=== PATIENT | female | born 1965 | race Caucasian/White ===

== ENCOUNTER 2023-01-17 06:59 | Emergency (ER) | payer MEDICAID, OTHER ==
[~2023-01-17] VITALS: Ht 154.9 cm; Wt 97.0 kg
[~2023-01-17 06:59] MED LIST: GLIP10TA10 PO; SITA1TAB8 PO; SULF1TAB48 PO; TRAM50TA3 PO
[2023-01-17 07:13] VITALS: BP 142/72; PULSE 88; RESP 18; TEMP 97.7; O2SAT 98
[2023-01-17] MEDS ORDERED: ACETAMINOPHEN 325MG TABLET PO ONE (07:30)
[2023-01-17] MEDS ORDERED: IBUPROFEN 400MG TABLET PO ONE (07:30)
[2023-01-17] MEDS ORDERED: CEPH500C2 PO (07:39)
[2023-01-17] MEDS ORDERED: SULF1TAB48 PO (07:39)
[2023-01-17 07:58] LABS: BASOPHILS % 0.9 % (0.0-2.0); EOSINOPHILS % 1.4 % (0.0-5.0); HEMATOCRIT. 35.5 % (36.0-48.0); HEMOGLOBIN. 12.2 g/dL (12.0-16.0); LYMPHOCYTES % 25.2 % (20.0-50.0); MEAN CORPUSCULAR HEMOGLOBIN 30.7 pg (28.0-32.0); MEAN CORPUSCULAR HGB CONC 34.2 g/dL (31.0-37.0); MEAN CORPUSCULAR VOLUME 89.7 fL (81.0-99.0); MONOCYTES % 5.9 % (2.0-8.0); NEUTROPHILS % 66.6 % (40.0-76.0); PLATELET 315 x1000/uL (130-400); RED BLOOD CELL COUNT 3.96 mill/uL (4.2-5.4); RED CELL DISTRIBUTION WIDTH 13.8 % (11.6-14.6); WHITE BLOOD COUNT 7.8 x1000/uL (4.5-11.0)
[2023-01-17] MEDS ORDERED: PROPOFOL 200MG/20ML VIAL IV PRN (08:15)
[2023-01-17] MEDS ORDERED: KETAMINE HCL 50 MG/ML 10ML IV ONE (08:15)
[2023-01-17] MEDS ORDERED: ONDANSETRON HCL 4MG/2ML INJ IV ONE (08:15)
[2023-01-17 08:20] LABS: ALANINE AMINOTRANSFERASE 30 IU/L (10-49); ALBUMIN 3.8 g/dL (3.2-4.8); ASPARTATE AMINOTRANSFERASE 31 IU/L (<34); BILIRUBIN TOTAL 0.5 mg/dL (0.1-1.0); CALCIUM 9.4 mg/dL (8.7-10.4); CARBON DIOXIDE 25 mEq/L (21-32); CHLORIDE 103 mEq/L (98-107); CREATININE 0.6 mg/dL (0.6-1.0); GLUCOSE 215 mg/dL (70-105); POTASSIUM 4.2 mEq/L (3.5-5.1); PROTEIN TOTAL 6.9 g/dL (6.0-8.3); SODIUM 136 mEq/L (136-145); THYROID STIMULATING HORMONE 2.35 uIU/mL (0.55-4.78); UREA NITROGEN BLOOD 11 mg/dL (9-23)
== END 2023-01-17 08:21 | disposition home or self-care (01) ==
LOC: ER 06:59
DX: L03.221 Cellulitis of neck (principal)
CPT/HCPCS: 36415; 80053; 84443; 85025; 99283

== ENCOUNTER 2023-01-23 06:15 | Emergency (ER) | payer MEDICAID ==
[~2023-01-23] VITALS: Ht 154.9 cm; Wt 103.0 kg
[~2023-01-23 06:15] MED LIST changes: +CEPH500C2 PO
[2023-01-23 06:19] VITALS: O2SAT 98
[2023-01-23] MEDS ORDERED: IBUP-2028 MT (06:29)
[2023-01-23] MEDS ORDERED: DIPH25CA83 MT (06:29)
[2023-01-23 07:14] VITALS: BP 134/77; PULSE 68; RESP 18; TEMP 98.4
== END 2023-01-23 07:16 | disposition home or self-care (01) ==
LOC: ER 06:15
DX: S10.96XA Insect bite of unspecified part of neck, initial encounter (principal); E11.9 Type 2 diabetes mellitus without complications; E78.00 Pure hypercholesterolemia, unspecified; I10 Essential (primary) hypertension; Z90.49 Acquired absence of other specified parts of digestive tract; Z90.710 Acquired absence of both cervix and uterus; Z98.890 Other specified postprocedural states; W57.XXXA Bitten or stung by nonvenomous insect and other nonvenomous arthropods, initial encounter; Y93.89 Activity, other specified; Y92.89 Other specified places as the place of occurrence of the external cause; Y99.8 Other external cause status
CPT/HCPCS: 99283

== ENCOUNTER → 2023-03-13 | Emergency (ER) | payer MEDICAID ==
[~2023-03-13] VITALS: Ht 154.9 cm; Wt 88.4 kg
[~2023-03-13] MED LIST changes: +DIPH25CA83 MT; +IBUP-2028 MT
[2023-03-13 05:20] VITALS: BP 152/62; PULSE 96; RESP 14; TEMP 98; O2SAT 99
[2023-03-13 06:02] LABS: CLARITY URINE CLEAR (CLEAR); COLOR URINE YELLOW (YELLOW); GLUCOSE URINE 3+ (NEGATIVE); KETONES URINE 1+ (NEGATIVE); LEUKOCYTE ESTERASE URINE NEGATIVE (NEGATIVE); NITRITE URINE NEGATIVE (NEGATIVE); OCCULT BLOOD URINE 2+ (NEGATIVE); PH URINE 6.5 (4.5-8.0); PROTEIN URINE 3+ (NEGATIVE); SPECIFIC GRAVITY URINE 1.032 (1.005-1.030); UROBILINOGEN URINE 0.2 E.U./dL (0.2-1.0)
[2023-03-13 06:44] LABS: SQUAMOUS EPITHELIAL CELL URINE FEW /lpf (RARE/1+)
[2023-03-13 06:46] LABS: WBC URINE 0-2 /hpf (0-2)
[2023-03-13 06:48] LABS: BACTERIA URINE NONE SEEN
== END ==
LOC: ER 05:02
DX: M25.559 Pain in unspecified hip (principal); Z53.21 Procedure and treatment not carried out due to patient leaving prior to being seen by health care provider
CPT/HCPCS: 81003; 99281

== ENCOUNTER 2023-03-18 00:47 | Emergency (ER) | payer MEDICAID ==
[~2023-03-18] VITALS: Ht 154.9 cm; Wt 88.1 kg
[2023-03-18 01:23] VITALS: O2SAT 99
[2023-03-18] MEDS ORDERED: HYDROCODONE/ACETAMINOPHEN 5/325MG TABLET PO ONE (03:00)
[2023-03-18] MEDS ORDERED: IBUP-2029 MT (04:09)
[2023-03-18 04:55] VITALS: BP 122/84; PULSE 89; RESP 16; TEMP 97.9
== END 2023-03-18 04:50 | disposition home or self-care (01) ==
LOC: ER 00:47
DX: S80.02XA Contusion of left knee, initial encounter (principal); M71.22 Synovial cyst of popliteal space [Baker], left knee; E78.00 Pure hypercholesterolemia, unspecified; I10 Essential (primary) hypertension; E11.9 Type 2 diabetes mellitus without complications; Z90.49 Acquired absence of other specified parts of digestive tract; Z98.890 Other specified postprocedural states; W18.30XA Fall on same level, unspecified, initial encounter; Y93.89 Activity, other specified; Y92.89 Other specified places as the place of occurrence of the external cause; Y99.8 Other external cause status
CPT/HCPCS: 73562; 93970; 99284

== ENCOUNTER 2023-03-19 07:33 | Emergency (ER) | payer MEDICAID ==
[~2023-03-19] VITALS: Ht 160 cm; Wt 90.0 kg
[~2023-03-19 07:33] MED LIST changes: +IBUP-2029 MT
[2023-03-19 07:51] VITALS: O2SAT 99
[2023-03-19 10:21] VITALS: BP 160/81; PULSE 87; RESP 20; TEMP 98.3
== END 2023-03-19 10:22 | disposition home or self-care (01) ==
LOC: ER 07:33
DX: R60.9 Edema, unspecified (principal); I10 Essential (primary) hypertension; E78.00 Pure hypercholesterolemia, unspecified; E11.9 Type 2 diabetes mellitus without complications; Z98.890 Other specified postprocedural states; Z90.49 Acquired absence of other specified parts of digestive tract
CPT/HCPCS: 99281

== ENCOUNTER 2023-04-24 21:40 | Emergency (ER) | payer MEDICAID ==
[~2023-04-24] VITALS: Ht 152.4 cm; Wt 94.0 kg
[2023-04-24 21:57] VITALS: O2SAT 99
[2023-04-24] MEDS ORDERED: KETOROLAC 15MG/ML VIAL IM ONE (22:15)
[2023-04-24] MEDS: KETOROLAC 15MG/ML VIAL IM NR (23:50)
[2023-04-25 00:28] VITALS: BP 120/80; PULSE 85; RESP 18; TEMP 98.4
== END 2023-04-25 00:28 | disposition home or self-care (01) ==
LOC: ER 21:40
DX: S09.90XA Unspecified injury of head, initial encounter (principal); E11.9 Type 2 diabetes mellitus without complications; E78.00 Pure hypercholesterolemia, unspecified; I10 Essential (primary) hypertension; Z98.890 Other specified postprocedural states; Z90.710 Acquired absence of both cervix and uterus; Z79.899 Other long term (current) drug therapy; Y08.89XA Assault by other specified means, initial encounter; Y93.89 Activity, other specified; Y92.89 Other specified places as the place of occurrence of the external cause; Y99.8 Other external cause status
CPT/HCPCS: 99285; 70450; 96372; J1885

== ENCOUNTER 2023-04-27 01:29 | Emergency (ER) | payer MEDICAID ==
[~2023-04-27] VITALS: Ht 167.6 cm; Wt 85.3 kg
[2023-04-27 01:45] VITALS: BP 143/58; PULSE 90; RESP 16; TEMP 98.6; O2SAT 99
== END 2023-04-27 11:50 | disposition left against medical advice (07) ==
LOC: ER 03:50
DX: M79.672 Pain in left foot (principal); M79.671 Pain in right foot; Z53.21 Procedure and treatment not carried out due to patient leaving prior to being seen by health care provider
CPT/HCPCS: 99281

== ENCOUNTER 2023-04-27 18:21 | Emergency (ER) | payer MEDICAID ==
[~2023-04-27] VITALS: Ht 154.9 cm; Wt 90.0 kg
[2023-04-27 18:43] VITALS: BP 142/92; PULSE 86; RESP 18; TEMP 98.2; O2SAT 99
== END 2023-04-27 20:42 | disposition left against medical advice (07) ==
LOC: ER 18:21
DX: M79.89 Other specified soft tissue disorders (principal); Z53.21 Procedure and treatment not carried out due to patient leaving prior to being seen by health care provider
CPT/HCPCS: 99281

== ENCOUNTER 2023-05-06 08:29 | Emergency (ER) | payer MEDICAID ==
[~2023-05-06] VITALS: Ht 165.1 cm; Wt 90.0 kg
[2023-05-06 08:31] VITALS: BP 150/94; PULSE 80; RESP 16; TEMP 98.5; O2SAT 99
[2023-05-06 09:13] LABS: BASOPHILS % 0.5 % (0.0-2.0); EOSINOPHILS % 0.6 % (0.0-5.0); HEMATOCRIT. 33.8 % (36.0-48.0); HEMOGLOBIN. 11.7 g/dL (12.0-16.0); LYMPHOCYTES % 13.1 % (20.0-50.0); MEAN CORPUSCULAR HGB CONC 34.5 g/dL (31.0-37.0); MEAN CORPUSCULAR VOLUME 89.8 fL (81.0-99.0); MEAN PLATELET VOLUME 7.2 fl (7.4-10.4); MONOCYTES % 5.2 % (2.0-8.0); NEUTROPHILS % 80.6 % (40.0-76.0); PLATELET 260 x1000/uL (130-400); RED BLOOD CELL COUNT 3.77 mill/uL (4.2-5.4); RED CELL DISTRIBUTION WIDTH 13.9 % (11.6-14.6); WHITE BLOOD COUNT 8.9 x1000/uL (4.5-11.0)
[2023-05-06] MEDS: SODIUM CHLORIDE 0.9% 1,000 ML IV ONE (09:57)
[2023-05-06] MEDS: LACTATED RINGERS 1,800 ML IV ONE (09:57)
[2023-05-06 10:06] LABS: ALANINE AMINOTRANSFERASE 33 IU/L (10-49); ALBUMIN 3.5 g/dL (3.2-4.8); ASPARTATE AMINOTRANSFERASE 26 IU/L (<34); BILIRUBIN TOTAL 0.5 mg/dL (0.1-1.0); CALCIUM 8.7 mg/dL (8.7-10.4); CARBON DIOXIDE 27 mEq/L (21-32); CHLORIDE 99 mEq/L (98-107); CREATININE 0.7 mg/dL (0.6-1.0); POTASSIUM 3.9 mEq/L (3.5-5.1); SODIUM 132 mEq/L (136-145); TROPONIN I HIGH SENSITIVITY 11 ng/L (3.0-34); UREA NITROGEN BLOOD 18 mg/dL (9-23)
[2023-05-06 10:13] LABS: GLUCOSE 477 mg/dL (70-105)
[2023-05-06 16:09] LABS: BETA HYDROXYBUTYRATE 0.7 mMol/L (0.0-0.3)
== END 2023-05-06 12:02 | disposition left against medical advice (07) ==
LOC: ER 08:43 → CANBEDREQ 05-07 00:25
DX: E11.65 Type 2 diabetes mellitus with hyperglycemia (principal); R53.1 Weakness; E78.00 Pure hypercholesterolemia, unspecified; I10 Essential (primary) hypertension; Z98.890 Other specified postprocedural states; Z90.710 Acquired absence of both cervix and uterus; Z90.49 Acquired absence of other specified parts of digestive tract; Z79.899 Other long term (current) drug therapy
CPT/HCPCS: 99285; 96360; 71045; 80053; 82010; 83690; 83930; 85025; 84484; 36415; 93005; J7120; J7030

== ENCOUNTER 2023-05-09 09:33 | Emergency (ER) | payer MEDICAID ==
[~2023-05-09] VITALS: Ht 154.9 cm; Wt 59.0 kg
[2023-05-09 09:38] VITALS: BP 120/52; PULSE 90; RESP 16; TEMP 97.9; O2SAT 99
== END 2023-05-09 10:00 | disposition left against medical advice (07) ==
LOC: ER 09:33
DX: M79.672 Pain in left foot (principal); M79.671 Pain in right foot; Z53.21 Procedure and treatment not carried out due to patient leaving prior to being seen by health care provider
CPT/HCPCS: 99281

== ENCOUNTER 2023-05-10 21:42 | Emergency (ER) | payer MEDICAID ==
[2023-05-10 21:46] VITALS: PULSE 105
== END 2023-05-10 21:50 | disposition left against medical advice (07) ==
LOC: ER 21:42
DX: M79.89 Other specified soft tissue disorders (principal); Z53.21 Procedure and treatment not carried out due to patient leaving prior to being seen by health care provider
CPT/HCPCS: 99281

== ENCOUNTER 2023-05-11 21:17 | Emergency (ER) | payer MEDICAID ==
[~2023-05-11] VITALS: Ht 165.1 cm; Wt 90.0 kg
[2023-05-11 21:19] VITALS: BP 156/87; PULSE 96; RESP 12; TEMP 98.8; O2SAT 98
== END 2023-05-12 02:22 | disposition left against medical advice (07) ==
LOC: ER 21:17
DX: R10.9 Unspecified abdominal pain (principal); Z53.21 Procedure and treatment not carried out due to patient leaving prior to being seen by health care provider
CPT/HCPCS: 93005; 99281

== ENCOUNTER 2023-05-12 20:57 | Emergency (ER) | payer MEDICAID ==
[~2023-05-12] VITALS: Ht 152.4 cm; Wt 81.7 kg
[2023-05-12] MEDS: HALOPERIDOL LACTATE 5MG/ML VIAL IM ONE (23:23)
[2023-05-12 23:54] LABS: BASOPHILS % 0.8 % (0.0-2.0); EOSINOPHILS % 1.5 % (0.0-5.0); HEMATOCRIT. 30.5 % (36.0-48.0); HEMOGLOBIN. 10.5 g/dL (12.0-16.0); LYMPHOCYTES % 33.2 % (20.0-50.0); MEAN CORPUSCULAR HEMOGLOBIN 31.5 pg (28.0-32.0); MEAN CORPUSCULAR HGB CONC 34.5 g/dL (31.0-37.0); MEAN CORPUSCULAR VOLUME 91.3 fL (81.0-99.0); MEAN PLATELET VOLUME 7.4 fl (7.4-10.4); NEUTROPHILS % 54.5 % (40.0-76.0); PLATELET 268 x1000/uL (130-400); RED BLOOD CELL COUNT 3.34 mill/uL (4.2-5.4); RED CELL DISTRIBUTION WIDTH 13.8 % (11.6-14.6); WHITE BLOOD COUNT 8.1 x1000/uL (4.5-11.0)
[2023-05-13 00:01] LABS: PROTHROMBIN TIME 10.7 sec (9.6-11.0)
[2023-05-13 00:12] LABS: LACTIC ACID 2.3 mmol/L (0.4-2.0)
[2023-05-13] MEDS: CEFTRIAXONE 1GM/50ML 50 ML IV ONE (00:12)
[2023-05-13] MEDS: SODIUM CHLORIDE 0.9% 1000ML BAG (SEPSIS BOLUS) IV ONE (00:12)
[2023-05-13 00:13] LABS: ACETAMINOPHEN < 2 ug/mL (10-30); ALANINE AMINOTRANSFERASE 73 IU/L (10-49); ALBUMIN 3.3 g/dL (3.2-4.8); ASPARTATE AMINOTRANSFERASE 57 IU/L (<34); BILIRUBIN TOTAL 0.4 mg/dL (0.1-1.0); CALCIUM 8.2 mg/dL (8.7-10.4); CARBON DIOXIDE 27 mEq/L (21-32); CHLORIDE 96 mEq/L (98-107); CREATININE 0.8 mg/dL (0.6-1.0); POTASSIUM 4.2 mEq/L (3.5-5.1); PROTEIN TOTAL 6.4 g/dL (6.0-8.3); SODIUM 128 mEq/L (136-145); TROPONIN I HIGH SENSITIVITY 10 ng/L (3.0-34); UREA NITROGEN BLOOD 23 mg/dL (9-23)
[2023-05-13 00:14] LABS: ETHANOL BLOOD < 10 mg/dL (<10)
[2023-05-13 00:17] LABS: GLUCOSE 655 mg/dL (70-105)
[2023-05-13 00:25] LABS: CLARITY URINE CLEAR (CLEAR); COLOR URINE YELLOW (YELLOW); GLUCOSE URINE 3+ (NEGATIVE); KETONES URINE NEGATIVE (NEGATIVE); LEUKOCYTE ESTERASE URINE NEGATIVE (NEGATIVE); NITRITE URINE NEGATIVE (NEGATIVE); OCCULT BLOOD URINE NEGATIVE (NEGATIVE); PH URINE 5.5 (4.5-8.0); PROTEIN URINE 1+ (NEGATIVE); SPECIFIC GRAVITY URINE 1.033 (1.005-1.030); UROBILINOGEN URINE 0.2 E.U./dL (0.2-1.0)
[2023-05-13 00:32] LABS: BETA HYDROXYBUTYRATE 0.1 mMol/L (0.0-0.3)
[2023-05-13 00:37] LABS: HCG SCREEN NEGATIVE
[2023-05-13 00:48] LABS: *AMPHETAMINES SCREEN URINE NEGATIVE (NEGATIVE); *BARBITURATES SCREEN URINE NEGATIVE (NEGATIVE); *BENZODIAZEPINES SCREEN URINE NEGATIVE (NEGATIVE); *COCAINE SCREEN URINE NEGATIVE (NEGATIVE); CANNABINOID URINE SCREEN NEGATIVE (NEGATIVE); ECSTASY MDMA SCREEN URINE NEGATIVE (NEGATIVE); METHADONE URINE SCREEN Neg (NEGATIVE); OPIATES URINE SCREEN NEGATIVE (NEGATIVE); PHENCYCLIDINE URINE SCREEN NEGATIVE (NEGATIVE)
[2023-05-13] MEDS ORDERED: INSULIN LISPRO 100 UNITS/ML SUBCUT NR (01:30)
[2023-05-13 02:36] LABS: SQUAMOUS EPITHELIAL CELL URINE FEW /lpf (RARE/1+)
[2023-05-13 02:38] LABS: RBC URINE 0-2 /hpf (0-2); WBC URINE 0-2 /hpf (0-2)
[2023-05-13 02:39] LABS: BACTERIA URINE NONE SEEN
[2023-05-13] MEDS: INSULIN LISPRO 100 UNITS/ML SUBCUT NR (03:09)
[2023-05-13 04:56] LABS: TROPONIN I HIGH SENSITIVITY 11 ng/L (3.0-34)
[2023-05-13] MEDS: INSULIN REGULAR (HUMULIN R) 300UNITS/3ML VIAL SUBCUT ONE (09:30)
[2023-05-13] MEDS: METFORMIN HCL 500MG TABLET PO SCH (19:45)
[2023-05-13] MEDS: OLANZAPINE 5MG TABLET ODT PO SCH (19:45)
[2023-05-13] MEDS: OLANZAPINE 10 MG/VIAL IM ONE (21:15)
[2023-05-13] MEDS: HALOPERIDOL LACTATE 5MG/ML VIAL IM ONE (23:20)
[2023-05-14 06:19] LABS: CALCIUM 8.7 mg/dL (8.7-10.4); CARBON DIOXIDE 29 mEq/L (21-32); CHLORIDE 107 mEq/L (98-107); CREATININE 0.6 mg/dL (0.6-1.0); GLUCOSE 265 mg/dL (70-105); POTASSIUM 4.3 mEq/L (3.5-5.1); SODIUM 141 mEq/L (136-145); UREA NITROGEN BLOOD 16 mg/dL (9-23)
[2023-05-15] MEDS: HALOPERIDOL LACTATE 5MG/ML VIAL IM ONE (00:30)
[2023-05-15 04:50] VITALS: O2SAT 98
[2023-05-15] MEDS: MIDAZOLAM HCL 2 MG/2 ML VIAL IM ONE (04:50)
[2023-05-16] MEDS ORDERED: DEXTROSE 50% WATER 50ML SYRINGE IV PRN (15:30)
[2023-05-16] MEDS: BLOOD SUGAR DIAGNOSTIC STRIP TEST SCH (17:57)
[2023-05-16] MEDS: INSULIN LISPRO 100 UNITS/ML SUBCUT SCH (18:41)
[2023-05-17] MEDS: ACETAMINOPHEN 325MG TABLET PO NR (06:18)
[2023-05-17] MEDS ORDERED: INSULIN REGULAR (HUMULIN R) 300UNITS/3ML VIAL SUBCUT ONE (08:45)
[2023-05-17 13:30] VITALS: BP 112/65; PULSE 90; RESP 16; TEMP 98
== END 2023-05-17 13:30 | disposition home or self-care (01) ==
LOC: ER 20:57
DX: R41.82 Altered mental status, unspecified (principal); I10 Essential (primary) hypertension; E11.9 Type 2 diabetes mellitus without complications; E78.00 Pure hypercholesterolemia, unspecified; Z98.890 Other specified postprocedural states; Z90.49 Acquired absence of other specified parts of digestive tract; Z20.822 Contact with and (suspected) exposure to COVID-19
CPT/HCPCS: 80053; 80305; 80048; 81003; 81025; 80307; 82010; 80329; 80320; 82962 ×2; 84703; 83605; 83930; 85025; 85610; 87040; 87086; 84484; 87077; 36415; 84145; 71045; 93005; 96372 ×4; 99285; 87426; 96365; J0696; J1630 ×3; J7030; Z7610 ×2; J3490; J1815 ×2; J2250; G0480

== ENCOUNTER 2023-05-18 01:54 | Emergency (ER) | payer MEDICAID | END 2023-05-18 03:09 | disposition left against medical advice (07) | LOC: ER 01:54 | DX: M79.669 Pain in unspecified lower leg (principal); Z53.21 Procedure and treatment not carried out due to patient leaving prior to being seen by health care provider ==

== ENCOUNTER 2023-05-18 16:42 | Emergency (ER) | payer MEDICAID ==
[~2023-05-18] VITALS: Ht 157.5 cm; Wt 72.0 kg
[2023-05-18 16:46] VITALS: BP 105/46; PULSE 113; RESP 20; TEMP 98.1; O2SAT 100
== END 2023-05-18 17:13 | disposition left against medical advice (07) ==
LOC: ER 16:42
DX: M79.671 Pain in right foot (principal); E11.9 Type 2 diabetes mellitus without complications; E78.00 Pure hypercholesterolemia, unspecified; I10 Essential (primary) hypertension; Z90.710 Acquired absence of both cervix and uterus; Z98.890 Other specified postprocedural states
CPT/HCPCS: 73630; 99283

== ENCOUNTER 2023-05-20 01:04 | Emergency (ER) | payer MEDICAID ==
[2023-05-20 01:22] VITALS: PULSE 106; RESP 16
== END 2023-05-20 04:00 | disposition left against medical advice (07) ==
LOC: ER 03:30
DX: R07.89 Other chest pain (principal); Z53.21 Procedure and treatment not carried out due to patient leaving prior to being seen by health care provider
CPT/HCPCS: 99281

== ENCOUNTER 2023-05-21 04:55 | Inpatient (IN) | payer MEDICAID ==
[~2023-05-21] VITALS: Ht 165.1 cm; Wt 84.4 kg
[2023-05-21] MEDS: ACETAMINOPHEN 325MG TABLET PO ONE (09:01)
[2023-05-21 09:14] LABS: BASOPHILS % 0.8 % (0.0-2.0); HEMATOCRIT. 35.9 % (36.0-48.0); HEMOGLOBIN. 12.7 g/dL (12.0-16.0); LYMPHOCYTES % 23.5 % (20.0-50.0); MEAN CORPUSCULAR HEMOGLOBIN 31.2 pg (28.0-32.0); MEAN CORPUSCULAR HGB CONC 35.3 g/dL (31.0-37.0); MEAN CORPUSCULAR VOLUME 88.4 fL (81.0-99.0); MEAN PLATELET VOLUME 7.7 fl (7.4-10.4); MONOCYTES % 7.7 % (2.0-8.0); PLATELET 267 x1000/uL (130-400); RED BLOOD CELL COUNT 4.06 mill/uL (4.2-5.4); RED CELL DISTRIBUTION WIDTH 13.7 % (11.6-14.6); WHITE BLOOD COUNT 8.3 x1000/uL (4.5-11.0)
[2023-05-21 09:34] LABS: ACETAMINOPHEN < 2 ug/mL (10-30); ALANINE AMINOTRANSFERASE 49 IU/L (10-49); ALBUMIN 3.9 g/dL (3.2-4.8); ASPARTATE AMINOTRANSFERASE 36 IU/L (<34); BILIRUBIN TOTAL 0.5 mg/dL (0.1-1.0); CALCIUM 8.8 mg/dL (8.7-10.4); CARBON DIOXIDE 30 mEq/L (21-32); CHLORIDE 99 mEq/L (98-107); CREATININE 0.8 mg/dL (0.6-1.0); POTASSIUM 4.2 mEq/L (3.5-5.1); PROTEIN TOTAL 7.8 g/dL (6.0-8.3); SODIUM 133 mEq/L (136-145); UREA NITROGEN BLOOD 20 mg/dL (9-23)
[2023-05-21 09:35] LABS: ETHANOL BLOOD < 10 mg/dL (<10)
[2023-05-21 09:37] LABS: GLUCOSE 493 mg/dL (70-105)
[2023-05-21] MEDS: INSULIN REGULAR (HUMULIN R) 300UNITS/3ML VIAL SUBCUT NR (11:05)
[2023-05-21] MEDS: METFORMIN HCL 500MG TABLET PO SCH (11:29)
[2023-05-21] MEDS: ZIPRASIDONE MESYLATE 20MG/VIAL IM ONE (12:04)
[2023-05-21] MEDS: LORAZEPAM 2MG/ML INJ IM ONE (12:21)
[2023-05-21 17:23] LABS: CLARITY URINE TURBID (CLEAR); COLOR URINE YELLOW (YELLOW); GLUCOSE URINE 3+ (NEGATIVE); KETONES URINE NEGATIVE (NEGATIVE); LEUKOCYTE ESTERASE URINE 2+ (NEGATIVE); NITRITE URINE NEGATIVE (NEGATIVE); OCCULT BLOOD URINE 1+ (NEGATIVE); PH URINE 5.5 (4.5-8.0); PROTEIN URINE 2+ (NEGATIVE); SPECIFIC GRAVITY URINE 1.035 (1.005-1.030); UROBILINOGEN URINE 0.2 E.U./dL (0.2-1.0)
[2023-05-21 17:31] LABS: *AMPHETAMINES SCREEN URINE NEGATIVE (NEGATIVE); *BARBITURATES SCREEN URINE NEGATIVE (NEGATIVE); *BENZODIAZEPINES SCREEN URINE NEGATIVE (NEGATIVE); *COCAINE SCREEN URINE NEGATIVE (NEGATIVE); CANNABINOID URINE SCREEN NEGATIVE (NEGATIVE); ECSTASY MDMA SCREEN URINE NEGATIVE (NEGATIVE); METHADONE URINE SCREEN Neg (NEGATIVE); OPIATES URINE SCREEN NEGATIVE (NEGATIVE); PHENCYCLIDINE URINE SCREEN NEGATIVE (NEGATIVE)
[2023-05-21 17:45] LABS: BACTERIA URINE NONE SEEN; RBC URINE 0-2 /hpf (0-2); SQUAMOUS EPITHELIAL CELL URINE NONE SEEN /lpf (RARE/1+)
[2023-05-21] MEDS: INSULIN LISPRO 100 UNITS/ML SUBCUT SCH (18:20)
[2023-05-22] MEDS: ZIPRASIDONE MESYLATE 20MG/VIAL IM ONE (01:44)
[2023-05-22] MEDS ORDERED: DEXTROSE 50% WATER 50ML SYRINGE IV PRN (08:15)
[2023-05-22] MEDS: LORAZEPAM 2MG/ML INJ IM NR (08:15)
[2023-05-22] MEDS: BLOOD SUGAR DIAGNOSTIC STRIP TEST SCH (09:00)
[2023-05-22] MEDS: OLANZAPINE 5MG TABLET ODT PO ONE (09:30)
[2023-05-22] MEDS: DIPHENHYDRAMINE 50MG/ML VIAL IM ONE (15:03)
[2023-05-22] MEDS: OLANZAPINE 10 MG/VIAL IM ONE (15:03)
[2023-05-22] MEDS: LORAZEPAM 2MG/ML INJ IV ONE (15:23)
[2023-05-23] MEDS ORDERED: ERGO1250 PO (09:53)
[2023-05-23] MEDS ORDERED: EMPA25TA PO (09:53)
[2023-05-23] MEDS ORDERED: GABA-290 PO (09:53)
[2023-05-23] MEDS ORDERED: LISI2.5T47 PO (09:53)
[2023-05-23] MEDS ORDERED: ATOR10TA69 PO (09:53)
[2023-05-23] MEDS ORDERED: METF-416 PO (09:53)
[2023-05-23] MEDS: RISPERIDONE 1MG TABLET PO SCH (10:42)
[2023-05-23] MEDS: LORAZEPAM 2MG/ML INJ IM ONE ×2 (11:45→18:43)
[2023-05-23] MEDS: OLANZAPINE 10 MG/VIAL IM ONE (11:45)
[2023-05-23 13:50] VITALS: O2SAT 100
[2023-05-23] MEDS: GABAPENTIN 100MG CAPSULE PO SCH (14:00)
[2023-05-23] MEDS: HALOPERIDOL LACTATE 5MG/ML VIAL IM ONE (18:43)
[2023-05-23] MEDS: OLANZAPINE 5MG TABLET ODT PO ONE (18:48)
[2023-05-23] MEDS: LORAZEPAM 1MG TABLET PO ONE (18:48)
[2023-05-24 05:12] LABS: HEMATOCRIT. 35.7 % (36.0-48.0); HEMOGLOBIN. 12.3 g/dL (12.0-16.0); MEAN CORPUSCULAR HEMOGLOBIN 30.7 pg (28.0-32.0); MEAN CORPUSCULAR HGB CONC 34.3 g/dL (31.0-37.0); MEAN CORPUSCULAR VOLUME 89.6 fL (81.0-99.0); MEAN PLATELET VOLUME 7.9 fl (7.4-10.4); PLATELET 295 x1000/uL (130-400); RED BLOOD CELL COUNT 3.99 mill/uL (4.2-5.4); RED CELL DISTRIBUTION WIDTH 13.9 % (11.6-14.6); WHITE BLOOD COUNT 13.2 x1000/uL (4.5-11.0)
[2023-05-24 05:20] LABS: DIFFERENTIAL COMMENT 1
[2023-05-24 05:27] LABS: ALANINE AMINOTRANSFERASE 30 IU/L (10-49); ASPARTATE AMINOTRANSFERASE 49 IU/L (<34); BILIRUBIN TOTAL 0.5 mg/dL (0.1-1.0); CARBON DIOXIDE 25 mEq/L (21-32); CHLORIDE 103 mEq/L (98-107); CREATININE 0.7 mg/dL (0.6-1.0); GLUCOSE 319 mg/dL (70-105); POTASSIUM 5.4 mEq/L (3.5-5.1); PROTEIN TOTAL 7.9 g/dL (6.0-8.3); SODIUM 137 mEq/L (136-145); UREA NITROGEN BLOOD 21 mg/dL (9-23)
[2023-05-24] MEDS: SODIUM CHLORIDE 0.9% 1,000 ML IV ONE ×2 (05:30→19:00)
[2023-05-24 05:35] LABS: CLARITY URINE CLOUDY (CLEAR); COLOR URINE YELLOW (YELLOW); GLUCOSE URINE 3+ (NEGATIVE); KETONES URINE 2+ (NEGATIVE); LEUKOCYTE ESTERASE URINE NEGATIVE (NEGATIVE); NITRITE URINE NEGATIVE (NEGATIVE); OCCULT BLOOD URINE 1+ (NEGATIVE); PH URINE 5.5 (4.5-8.0); PROTEIN URINE 2+ (NEGATIVE); SPECIFIC GRAVITY URINE 1.024 (1.005-1.030); UROBILINOGEN URINE 0.2 E.U./dL (0.2-1.0)
[2023-05-24] MEDS: ACETAMINOPHEN 325MG TABLET PO NR (05:41)
[2023-05-24] MEDS: CEFTRIAXONE 1GM/50ML 50 ML IV NR (05:42)
[2023-05-24 05:52] LABS: BACTERIA URINE 2+; RBC URINE 0-2 /hpf (0-2); SQUAMOUS EPITHELIAL CELL URINE FEW /lpf (RARE/1+)
[2023-05-24 05:59] LABS: PLATELET ESTIMATE NORMAL
[2023-05-24] MEDS: NITROFURANTOIN 100MG M/M CAPSULE PO SCH (09:00)
[2023-05-24] MEDS: BLOOD SUGAR DIAGNOSTIC STRIP TEST SCH (12:02)
[2023-05-24] MEDS: INSULIN LISPRO 100 UNITS/ML SUBCUT SCH (13:20)
[2023-05-24] MEDS ORDERED: INSULIN REGULAR (HUMULIN R) 300UNITS/3ML VIAL IV STA (22:33)
[2023-05-24] MEDS ORDERED: HALOPERIDOL LACTATE 5MG/ML VIAL IM PRN (22:45)
[2023-05-24] MEDS ORDERED: INSULIN REGULAR (HUMULIN R) 300UNITS/3ML VIAL IV NR (22:45)
[2023-05-24] MEDS: INSULIN REGULAR (HUMULIN R) 300UNITS/3ML VIAL IV NR (23:27)
[2023-05-25 10:33] VITALS: BP 118/61; PULSE 130; RESP 19; TEMP 98.2
[2023-05-25] MEDS ORDERED: GLIP10TA10 PO (10:42)
[2023-05-25 12:00] VITALS: BP 133/69; PULSE 145; RESP 18; TEMP 98.2
[2023-05-25] MEDS ORDERED: SODIUM CHLORIDE 0.9% 1000ML BAG (SEPSIS BOLUS) IV ONE (12:00)
[2023-05-25] MEDS ORDERED: CLONIDINE 0.1MG TABLET PO PRN (12:15)
[2023-05-25] MEDS ORDERED: IPRATROPIUM/ALBUTEROL 0.5-3(2.5)MG/3ML NEB HHN PRN (12:15)
[2023-05-25] MEDS ORDERED: ACETAMINOPHEN 325MG TABLET PO PRN (12:15)
[2023-05-25] MEDS ORDERED: ONDANSETRON HCL 4MG/2ML INJ IV PRN (12:15)
[2023-05-25] MEDS ORDERED: DOCUSATE SODIUM 100MG CAPSULE PO PRN (12:15)
[2023-05-25] MEDS: INSULIN LISPRO 100 UNITS/ML SUBCUT SCH (12:44)
[2023-05-25] MEDS: SODIUM CHLORIDE 0.9% 1,000 ML IV ONE (12:50)
[2023-05-25 12:59] LABS: HEMATOCRIT. 34.4 % (36.0-48.0); HEMOGLOBIN. 11.6 g/dL (12.0-16.0); MEAN CORPUSCULAR HEMOGLOBIN 30.4 pg (28.0-32.0); MEAN CORPUSCULAR HGB CONC 33.7 g/dL (31.0-37.0); MEAN CORPUSCULAR VOLUME 90.2 fL (81.0-99.0); MEAN PLATELET VOLUME 7.3 fl (7.4-10.4); PLATELET 216 x1000/uL (130-400); RED BLOOD CELL COUNT 3.81 mill/uL (4.2-5.4); RED CELL DISTRIBUTION WIDTH 13.8 % (11.6-14.6); WHITE BLOOD COUNT 14.5 x1000/uL (4.5-11.0)
[2023-05-25 13:02] LABS: DIFFERENTIAL COMMENT 1
[2023-05-25 13:28] LABS: CALCIUM 8.7 mg/dL (8.7-10.4); CARBON DIOXIDE 22 mEq/L (21-32); CHLORIDE 99 mEq/L (98-107); CREATININE 0.8 mg/dL (0.6-1.0); GLUCOSE 323 mg/dL (70-105); POTASSIUM 3.8 mEq/L (3.5-5.1); SODIUM 132 mEq/L (136-145); UREA NITROGEN BLOOD 26 mg/dL (9-23)
[2023-05-25 13:29] LABS: LACTIC ACID 3.1 mmol/L (0.4-2.0)
[2023-05-25] MEDS ORDERED: CEFTRIAXONE 1GM/50ML 50 ML IV SCH (14:30)
[2023-05-25 16:00] VITALS: BP 152/68; PULSE 69; RESP 18; TEMP 97.8
[2023-05-25] MEDS: BLOOD SUGAR DIAGNOSTIC STRIP TEST SCH (16:42)
[2023-05-25] MEDS: VANCOMYCIN 1.5GM/250ML IV NR (16:43)
[2023-05-25] MEDS: CEFTRIAXONE 1GM/50ML 50ML IV SCH (16:43)
[2023-05-25 19:51] LABS: PLATELET ESTIMATE NORMAL
[2023-05-25 20:35] VITALS: BP 143/62; TEMP 98.2
[2023-05-25 20:40] LABS: HCG SCREEN NEGATIVE
[2023-05-25 21:36] VITALS: BP 127/58; PULSE 117; RESP 18
[2023-05-25] MEDS: METOPROLOL TARTRATE 25MG TABLET PO SCH (21:36)
[2023-05-25] MEDS: RISPERIDONE 1MG TABLET PO SCH (21:37)
[2023-05-26] VITALS (13 sets, daily range): BP systolic 84–153; BP diastolic 49–69; PULSE 79–115; RESP 16–20; TEMP 96–101
[2023-05-26 07:24] LABS: BASOPHILS % 0.4 % (0.0-2.0); EOSINOPHILS % 0.1 % (0.0-5.0); HEMATOCRIT. 27.5 % (36.0-48.0); HEMOGLOBIN. 9.7 g/dL (12.0-16.0); LYMPHOCYTES % 10.3 % (20.0-50.0); MEAN CORPUSCULAR HGB CONC 35.3 g/dL (31.0-37.0); MEAN PLATELET VOLUME 7.8 fl (7.4-10.4); MONOCYTES % 8.1 % (2.0-8.0); NEUTROPHILS % 81.1 % (40.0-76.0); PLATELET 172 x1000/uL (130-400); RED BLOOD CELL COUNT 3.12 mill/uL (4.2-5.4); RED CELL DISTRIBUTION WIDTH 13.7 % (11.6-14.6); WHITE BLOOD COUNT 10.7 x1000/uL (4.5-11.0)
[2023-05-26] MEDS ORDERED: INSULIN GLARGINE 100 UNITS/ML SUBCUT SCH (07:30)
[2023-05-26] MEDS: VANCOMYCIN 750MG/150ML IV SCH (07:30)
[2023-05-26 08:00] LABS: CALCIUM 7.5 mg/dL (8.7-10.4); CARBON DIOXIDE 21 mEq/L (21-32); CHLORIDE 90 mEq/L (98-107); CREATININE 0.8 mg/dL (0.6-1.0); POTASSIUM 3.7 mEq/L (3.5-5.1); T4 FREE 1.01 ng/dL (0.89-1.76); THYROID STIMULATING HORMONE 0.71 uIU/mL (0.55-4.78); UREA NITROGEN BLOOD 31 mg/dL (9-23)
[2023-05-26 08:05] LABS: SODIUM 113 mEq/L (136-145)
[2023-05-26 08:06] LABS: GLUCOSE 404 mg/dL (70-105)
[2023-05-26] MEDS: INSULIN GLARGINE 100 UNITS/ML SUBCUT SCH (10:21)
[2023-05-26 11:30] LABS: CALCIUM 7.1 mg/dL (8.7-10.4); CARBON DIOXIDE 23 mEq/L (21-32); CHLORIDE 94 mEq/L (98-107); CREATININE 0.9 mg/dL (0.6-1.0); POTASSIUM 3.6 mEq/L (3.5-5.1); SODIUM 122 mEq/L (136-145); UREA NITROGEN BLOOD 31 mg/dL (9-23)
[2023-05-26 11:43] LABS: GLUCOSE 441 mg/dL (70-105)
[2023-05-26] MEDS: ACETAMINOPHEN 325MG TABLET PO PRN (12:50)
[2023-05-26] MEDS ORDERED: SODIUM CHLORIDE 0.9% 500 ML IV NR (15:30)
[2023-05-26] MEDS: MEROPENEM 1G/100ML 100 ML IV SCH (17:45)
[2023-05-26] MEDS: SODIUM CHLORIDE 0.9% 1,000 ML IV SCH (20:18)
[2023-05-27] VITALS (12 sets, daily range): BP systolic 94–129; BP diastolic 49–69; PULSE 88–111; RESP 18–28; TEMP 98.8–100.3
[2023-05-27 03:39] LABS: BASOPHILS % 0.5 % (0.0-2.0); EOSINOPHILS % 0.7 % (0.0-5.0); HEMATOCRIT. 28.2 % (36.0-48.0); HEMOGLOBIN. 9.8 g/dL (12.0-16.0); MEAN CORPUSCULAR HEMOGLOBIN 30.3 pg (28.0-32.0); MEAN CORPUSCULAR HGB CONC 34.6 g/dL (31.0-37.0); MEAN CORPUSCULAR VOLUME 87.6 fL (81.0-99.0); MEAN PLATELET VOLUME 7.8 fl (7.4-10.4); MONOCYTES % 11.4 % (2.0-8.0); NEUTROPHILS % 76.4 % (40.0-76.0); PLATELET 158 x1000/uL (130-400); RED BLOOD CELL COUNT 3.22 mill/uL (4.2-5.4); RED CELL DISTRIBUTION WIDTH 13.9 % (11.6-14.6); WHITE BLOOD COUNT 8.8 x1000/uL (4.5-11.0)
[2023-05-27 03:57] LABS: CALCIUM 7.3 mg/dL (8.7-10.4); CARBON DIOXIDE 23 mEq/L (21-32); CHLORIDE 97 mEq/L (98-107); CREATININE 0.9 mg/dL (0.6-1.0); SODIUM 124 mEq/L (136-145); UREA NITROGEN BLOOD 35 mg/dL (9-23)
[2023-05-27 03:59] LABS: ALANINE AMINOTRANSFERASE 35 IU/L (10-49); ALBUMIN 2.5 g/dL (3.2-4.8); ASPARTATE AMINOTRANSFERASE 37 IU/L (<34); BILIRUBIN TOTAL 0.4 mg/dL (0.1-1.0); CALCIUM 7.2 mg/dL (8.7-10.4); CARBON DIOXIDE 22 mEq/L (21-32); CHLORIDE 96 mEq/L (98-107); CREATININE 0.9 mg/dL (0.6-1.0); PHOSPHORUS 2.1 mg/dL (2.5-4.9); SODIUM 124 mEq/L (136-145); UREA NITROGEN BLOOD 35 mg/dL (9-23)
[2023-05-27 04:42] LABS: GLUCOSE 421 mg/dL (70-105); GLUCOSE 424 mg/dL (70-105); PROTEIN TOTAL 5.1 g/dL (6.0-8.3)
[2023-05-27] MEDS: MAGNESIUM 1 G PREMIX 100 ML IV NR (10:35)
[2023-05-27] MEDS: INSULIN GLARGINE 100 UNITS/ML SUBCUT SCH ×2 (10:37→21:39)
[2023-05-27 19:13] LABS: UCG QC LOT# 713349; UCG SCREEN NEGATIVE
[2023-05-28] VITALS (12 sets, daily range): BP systolic 108–142; BP diastolic 61–83; PULSE 87–120; RESP 17–26; TEMP 98–99.3
[2023-05-28 06:04] LABS: BASOPHILS % 0.6 % (0.0-2.0); DIFFERENTIAL COMMENT 0; HEMATOCRIT. 25.1 % (36.0-48.0); HEMOGLOBIN. 8.9 g/dL (12.0-16.0); MEAN CORPUSCULAR HEMOGLOBIN 31.5 pg (28.0-32.0); MEAN CORPUSCULAR HGB CONC 35.4 g/dL (31.0-37.0); MEAN PLATELET VOLUME 7.7 fl (7.4-10.4); MONOCYTES % 14.9 % (2.0-8.0); NEUTROPHILS % 65.5 % (40.0-76.0); PLATELET 164 x1000/uL (130-400); RED BLOOD CELL COUNT 2.82 mill/uL (4.2-5.4); RED CELL DISTRIBUTION WIDTH 13.7 % (11.6-14.6); WHITE BLOOD COUNT 8.8 x1000/uL (4.5-11.0)
[2023-05-28 08:14] LABS: CALCIUM 7.1 mg/dL (8.7-10.4); CARBON DIOXIDE 21 mEq/L (21-32); CHLORIDE 101 mEq/L (98-107); CREATININE 0.6 mg/dL (0.6-1.0); GLUCOSE 210 mg/dL (70-105); PHOSPHORUS 1.9 mg/dL (2.5-4.9); SODIUM 129 mEq/L (136-145); UREA NITROGEN BLOOD 24 mg/dL (9-23)
[2023-05-28] MEDS: METOPROLOL TARTRATE 25MG TABLET PO SCH (08:41)
[2023-05-28] MEDS ORDERED: METOPROLOL TARTRATE 25MG TABLET PO SCH (09:00)
[2023-05-28] MEDS: MAGNESIUM 2 G PREMIX 50 ML IV SCH (10:53)
[2023-05-28] MEDS: CHOLECALCIFEROL (D3) 1000 UNIT TABLET PO SCH (10:53)
[2023-05-28] MEDS: POTASSIUM PHOSPHATE 20 MMOL in SODIUM CHLORIDE 0.9% 243.3333 ML IV SCH (11:18)
[2023-05-28] MEDS: CALCIUM CARBONATE 500MG TABLET CHEW PO SCH (11:19)
[2023-05-29] VITALS (9 sets, daily range): BP systolic 112–133; BP diastolic 45–70; PULSE 75–93; RESP 15–24; TEMP 97.3–98.9
[2023-05-29 07:12] LABS: HEMATOCRIT. 27.9 % (36.0-48.0); HEMOGLOBIN. 9.7 g/dL (12.0-16.0); MEAN CORPUSCULAR HEMOGLOBIN 30.6 pg (28.0-32.0); MEAN CORPUSCULAR HGB CONC 34.7 g/dL (31.0-37.0); MEAN CORPUSCULAR VOLUME 88.4 fL (81.0-99.0); MEAN PLATELET VOLUME 7.8 fl (7.4-10.4); PLATELET 173 x1000/uL (130-400); RED BLOOD CELL COUNT 3.15 mill/uL (4.2-5.4); RED CELL DISTRIBUTION WIDTH 13.8 % (11.6-14.6); WHITE BLOOD COUNT 9.9 x1000/uL (4.5-11.0)
[2023-05-29 07:15] LABS: DIFFERENTIAL COMMENT 1
[2023-05-29 07:18] LABS: ALANINE AMINOTRANSFERASE 37 IU/L (10-49); ALBUMIN 2.7 g/dL (3.2-4.8); ASPARTATE AMINOTRANSFERASE 35 IU/L (<34); BILIRUBIN TOTAL 0.3 mg/dL (0.1-1.0); CALCIUM 7.8 mg/dL (8.7-10.4); CARBON DIOXIDE 24 mEq/L (21-32); CHLORIDE 105 mEq/L (98-107); CREATININE 0.5 mg/dL (0.6-1.0); GLUCOSE 127 mg/dL (70-105); PHOSPHORUS 2.4 mg/dL (2.5-4.9); POTASSIUM 3.9 mEq/L (3.5-5.1); SODIUM 134 mEq/L (136-145); UREA NITROGEN BLOOD 15 mg/dL (9-23)
[2023-05-29] MEDS: SODIUM PHOSPHATE 15 MMOL in DEXT 5% WATER 245 ML IV SCH (09:30)
[2023-05-29] MEDS: MAGNESIUM 2 G PREMIX 50 ML IV SCH (09:30)
[2023-05-29 13:36] LABS: PLATELET ESTIMATE NORMAL
[2023-05-30] VITALS: BP 112/50; PULSE 77; RESP 18; TEMP 98.1
[2023-05-30 04:00] VITALS: BP 113/48; PULSE 83; RESP 18; TEMP 98.1
[2023-05-30 06:57] LABS: BASOPHILS % 0.6 % (0.0-2.0); EOSINOPHILS % 2.2 % (0.0-5.0); HEMATOCRIT. 27.9 % (36.0-48.0); HEMOGLOBIN. 9.8 g/dL (12.0-16.0); LYMPHOCYTES % 29.4 % (20.0-50.0); MEAN CORPUSCULAR HEMOGLOBIN 30.7 pg (28.0-32.0); MEAN CORPUSCULAR VOLUME 87.8 fL (81.0-99.0); MEAN PLATELET VOLUME 7.7 fl (7.4-10.4); NEUTROPHILS % 54.8 % (40.0-76.0); PLATELET 217 x1000/uL (130-400); RED BLOOD CELL COUNT 3.18 mill/uL (4.2-5.4); RED CELL DISTRIBUTION WIDTH 13.6 % (11.6-14.6); WHITE BLOOD COUNT 12.1 x1000/uL (4.5-11.0)
[2023-05-30 07:22] LABS: CALCIUM 8.2 mg/dL (8.7-10.4); CARBON DIOXIDE 25 mEq/L (21-32); CHLORIDE 106 mEq/L (98-107); CREATININE 0.4 mg/dL (0.6-1.0); GLUCOSE 69 mg/dL (70-105); PHOSPHORUS 3.1 mg/dL (2.5-4.9); SODIUM 137 mEq/L (136-145); UREA NITROGEN BLOOD 14 mg/dL (9-23)
[2023-05-30 08:00] VITALS: BP 107/50; PULSE 77; RESP 20; TEMP 98
[2023-05-30] MEDS: CALCIUM CARBONATE 500MG TABLET CHEW PO SCH (08:20)
[2023-05-30 12:00] VITALS: BP 102/45; PULSE 71; RESP 20; TEMP 98.1
[2023-05-30] MEDS: MAGNESIUM 2 G PREMIX 50 ML IV NR (13:11)
[2023-05-30 16:00] VITALS: BP 140/69; PULSE 78; RESP 20; TEMP 98.1
[2023-05-30 20:00] VITALS: BP 125/65; PULSE 83; RESP 20; TEMP 97.9
[2023-05-31] VITALS: BP_SYST 105; BP_SYST 110; BP_DIAS 53; BP_DIAS 62; PULSE 80; PULSE 84; RESP 16; RESP 20; TEMP 97.2; TEMP 97.9
[2023-05-31 04:00] VITALS: BP 107/51; PULSE 85; RESP 20; TEMP 97.7
[2023-05-31 08:00] VITALS: BP_SYST 127; BP_SYST 95; BP_DIAS 44; BP_DIAS 52; PULSE 68; PULSE 78; RESP 19; TEMP 97; TEMP 97.7
[2023-05-31 09:29] LABS: BASOPHILS % 0.5 % (0.0-2.0); EOSINOPHILS % 1.5 % (0.0-5.0); HEMATOCRIT. 25.4 % (36.0-48.0); HEMOGLOBIN. 8.8 g/dL (12.0-16.0); LYMPHOCYTES % 14.7 % (20.0-50.0); MEAN CORPUSCULAR HEMOGLOBIN 30.6 pg (28.0-32.0); MEAN CORPUSCULAR HGB CONC 34.5 g/dL (31.0-37.0); MEAN CORPUSCULAR VOLUME 88.8 fL (81.0-99.0); MEAN PLATELET VOLUME 7.5 fl (7.4-10.4); NEUTROPHILS % 73.3 % (40.0-76.0); PLATELET 237 x1000/uL (130-400); RED BLOOD CELL COUNT 2.86 mill/uL (4.2-5.4); RED CELL DISTRIBUTION WIDTH 13.8 % (11.6-14.6); WHITE BLOOD COUNT 7.8 x1000/uL (4.5-11.0)
[2023-05-31 11:10] LABS: CALCIUM 7.9 mg/dL (8.7-10.4); CARBON DIOXIDE 26 mEq/L (21-32); CHLORIDE 105 mEq/L (98-107); CREATININE 0.4 mg/dL (0.6-1.0); GLUCOSE 85 mg/dL (70-105); PHOSPHORUS 3.2 mg/dL (2.5-4.9); POTASSIUM 3.6 mEq/L (3.5-5.1); SODIUM 137 mEq/L (136-145); UREA NITROGEN BLOOD 13 mg/dL (9-23)
[2023-05-31 12:00] VITALS: BP 127/52; PULSE 78; RESP 19; TEMP 97.7
[2023-05-31 16:00] VITALS: BP 100/52; PULSE 65; RESP 19; TEMP 97.5
[2023-05-31] MEDS: MAGNESIUM 2 G PREMIX 50 ML IV NR (16:34)
[2023-05-31] MEDS: INSULIN GLARGINE 100 UNITS/ML SUBCUT SCH (21:56)
[2023-06-01] VITALS: BP 105/53; PULSE 80; RESP 16; TEMP 97.9
[2023-06-01 04:00] VITALS: BP 116/55; PULSE 78; RESP 19; TEMP 98.4
[2023-06-01 07:20] LABS: BASOPHILS % 0.7 % (0.0-2.0); EOSINOPHILS % 2.1 % (0.0-5.0); HEMATOCRIT. 24.8 % (36.0-48.0); HEMOGLOBIN. 8.6 g/dL (12.0-16.0); LYMPHOCYTES % 26.4 % (20.0-50.0); MEAN CORPUSCULAR HEMOGLOBIN 30.7 pg (28.0-32.0); MEAN CORPUSCULAR HGB CONC 34.7 g/dL (31.0-37.0); MEAN CORPUSCULAR VOLUME 88.5 fL (81.0-99.0); MEAN PLATELET VOLUME 7.3 fl (7.4-10.4); NEUTROPHILS % 61.8 % (40.0-76.0); PLATELET 268 x1000/uL (130-400); RED CELL DISTRIBUTION WIDTH 13.8 % (11.6-14.6); WHITE BLOOD COUNT 7.9 x1000/uL (4.5-11.0)
[2023-06-01 08:00] VITALS: BP 104/44; PULSE 76; RESP 19; TEMP 97.7
[2023-06-01 08:40] LABS: CARBON DIOXIDE 28 mEq/L (21-32); CHLORIDE 108 mEq/L (98-107); CREATININE 0.4 mg/dL (0.6-1.0); GLUCOSE 61 mg/dL (70-105); POTASSIUM 4.2 mEq/L (3.5-5.1); SODIUM 140 mEq/L (136-145); UREA NITROGEN BLOOD 13 mg/dL (9-23)
[2023-06-01] MEDS: MAGNESIUM OXIDE 400MG TABLET PO SCH (10:30)
[2023-06-01] MEDS: INSULIN GLARGINE 100 UNITS/ML SUBCUT SCH (10:35)
[2023-06-01 12:00] VITALS: BP 110/49; PULSE 73; RESP 18; TEMP 97.5
[2023-06-01] MEDS: MAGNESIUM 2 G PREMIX 50 ML IV NR (12:19)
[2023-06-01 16:00] VITALS: BP 113/48; PULSE 74; RESP 19; TEMP 97.7
[2023-06-01 20:00] VITALS: BP 122/58; PULSE 88; RESP 20; TEMP 98.4
[2023-06-02] VITALS: BP 106/59; PULSE 78; RESP 16; TEMP 97
[2023-06-02 04:00] VITALS: BP 112/56; PULSE 79; RESP 18; TEMP 99.6
[2023-06-02 07:36] VITALS: BP 104/41; PULSE 82; TEMP 97.5
[2023-06-02 07:40] LABS: CALCIUM 7.7 mg/dL (8.7-10.4); CARBON DIOXIDE 28 mEq/L (21-32); CHLORIDE 105 mEq/L (98-107); CREATININE 0.5 mg/dL (0.6-1.0); GLUCOSE 115 mg/dL (70-105); PHOSPHORUS 2.7 mg/dL (2.5-4.9); POTASSIUM 4.3 mEq/L (3.5-5.1); SODIUM 138 mEq/L (136-145); UREA NITROGEN BLOOD 12 mg/dL (9-23)
[2023-06-02 12:00] VITALS: BP 110/42; PULSE 74; RESP 16; TEMP 97.7
[2023-06-02] MEDS: MAGNESIUM 2 G PREMIX 50 ML IV NR (12:10)
[2023-06-02 16:00] VITALS: BP 108/49; PULSE 77; RESP 16; TEMP 98
[2023-06-02 20:00] VITALS: BP 126/55; PULSE 78; RESP 16; TEMP 97.5
[2023-06-03] VITALS (7 sets, daily range): BP systolic 99–137; BP diastolic 44–54; PULSE 56–77; RESP 16–20; TEMP 96.1–99.2
[2023-06-03 09:21] LABS: BASOPHILS % 0.4 % (0.0-2.0); EOSINOPHILS % 1.7 % (0.0-5.0); HEMATOCRIT. 24.4 % (36.0-48.0); HEMOGLOBIN. 8.3 g/dL (12.0-16.0); LYMPHOCYTES % 21.4 % (20.0-50.0); MEAN CORPUSCULAR HGB CONC 33.8 g/dL (31.0-37.0); MEAN CORPUSCULAR VOLUME 88.8 fL (81.0-99.0); MEAN PLATELET VOLUME 6.9 fl (7.4-10.4); MONOCYTES % 8.4 % (2.0-8.0); NEUTROPHILS % 68.1 % (40.0-76.0); PLATELET 328 x1000/uL (130-400); RED BLOOD CELL COUNT 2.75 mill/uL (4.2-5.4); RED CELL DISTRIBUTION WIDTH 13.5 % (11.6-14.6); WHITE BLOOD COUNT 7.2 x1000/uL (4.5-11.0)
[2023-06-03 09:44] LABS: CALCIUM 7.9 mg/dL (8.7-10.4); CARBON DIOXIDE 29 mEq/L (21-32); CHLORIDE 105 mEq/L (98-107); CREATININE 0.4 mg/dL (0.6-1.0); GLUCOSE 109 mg/dL (70-105); POTASSIUM 4.2 mEq/L (3.5-5.1); SODIUM 138 mEq/L (136-145); UREA NITROGEN BLOOD 14 mg/dL (9-23)
[2023-06-03] MEDS: MAGNESIUM 2 G PREMIX 50 ML IV NR (13:22)
[2023-06-03] MEDS: MAGNESIUM OXIDE 400MG TABLET PO SCH (17:11)
[2023-06-04] VITALS: BP 110/52; PULSE 78; RESP 19; TEMP 98.7
[2023-06-04 04:00] VITALS: BP 101/37; PULSE 73; RESP 18; TEMP 97.8
[2023-06-04 08:00] VITALS: BP 109/38; PULSE 80; RESP 18; TEMP 99
[2023-06-04 08:30] LABS: CALCIUM 7.8 mg/dL (8.7-10.4); CARBON DIOXIDE 28 mEq/L (21-32); CHLORIDE 105 mEq/L (98-107); CREATININE 0.4 mg/dL (0.6-1.0); GLUCOSE 128 mg/dL (70-105); PHOSPHORUS 3.4 mg/dL (2.5-4.9); POTASSIUM 4.5 mEq/L (3.5-5.1); SODIUM 137 mEq/L (136-145); UREA NITROGEN BLOOD 13 mg/dL (9-23)
[2023-06-04 12:00] VITALS: BP 149/78; PULSE 77; RESP 18; TEMP 98.1
[2023-06-04 15:55] VITALS: BP 123/40; PULSE 77; RESP 18; TEMP 99.5
[2023-06-04 20:00] VITALS: BP 117/48; PULSE 75; RESP 18; TEMP 98.6
[2023-06-05] VITALS: BP 105/40; PULSE 82; RESP 18; TEMP 99.9
[2023-06-05 04:00] VITALS: BP 112/48; PULSE 78; RESP 19; TEMP 97.9
[2023-06-05 08:00] VITALS: BP 102/48; PULSE 76; RESP 18; TEMP 97.4
[2023-06-05 12:00] VITALS: BP 125/76; PULSE 80; RESP 20; TEMP 97.3
[2023-06-05 16:00] VITALS: BP 110/50; PULSE 77; RESP 18; TEMP 97.3
[2023-06-05 20:00] VITALS: BP 111/46; PULSE 74; RESP 20; TEMP 98.6
[2023-06-06] VITALS: BP 138/49; PULSE 78; RESP 20; TEMP 98.1
[2023-06-06 04:00] VITALS: BP 104/42; PULSE 78; RESP 20; TEMP 99.1
[2023-06-06 08:00] VITALS: BP 97/56; PULSE 85; RESP 19; TEMP 97.8
[2023-06-06 12:00] VITALS: BP 94/56; PULSE 76; RESP 18; TEMP 97.5
[2023-06-06 16:00] VITALS: BP 122/55; PULSE 72; RESP 19; TEMP 97.6
[2023-06-06 20:00] VITALS: BP 110/45; PULSE 74; RESP 20; TEMP 97.9
[2023-06-07] VITALS: BP 106/34; PULSE 75; RESP 18; TEMP 97.2
[2023-06-07 04:00] VITALS: BP 98/43; PULSE 78; RESP 20; TEMP 98.1
[2023-06-07 08:00] VITALS: BP 105/50; PULSE 74; RESP 18; TEMP 97.6
[2023-06-07 12:00] VITALS: BP 107/37; PULSE 70; RESP 18; TEMP 97.5
[2023-06-07 16:00] VITALS: BP 126/55; PULSE 74; RESP 19; TEMP 97.6
[2023-06-07 20:00] VITALS: BP 101/43; PULSE 61; RESP 20; TEMP 98.2
[2023-06-08] VITALS: BP 111/34; PULSE 74; RESP 20; TEMP 97.9
[2023-06-08 04:00] VITALS: BP 103/51; PULSE 77; RESP 20; TEMP 98.6
[2023-06-08] MEDS: DEXTROSE 50% WATER 50ML SYRINGE IV PRN (06:39)
[2023-06-08 08:00] VITALS: BP 108/46; PULSE 69; RESP 18; TEMP 96.8
[2023-06-08 12:00] VITALS: BP 112/53; PULSE 72; RESP 19; TEMP 97.6
[2023-06-08 16:00] VITALS: BP 125/61; PULSE 72; RESP 18; TEMP 97.6
[2023-06-08] MEDS ORDERED: ONDANSETRON 4MG ODT PO PRN (17:44)
[2023-06-08 20:00] VITALS: BP 117/41; PULSE 74; RESP 20; TEMP 96.4
[2023-06-09] VITALS: BP 104/35; PULSE 76; RESP 20; TEMP 98.1
[2023-06-09 04:00] VITALS: BP 115/52; PULSE 77; RESP 18; TEMP 98.2
[2023-06-09 08:00] VITALS: BP 102/43; PULSE 70; RESP 18; TEMP 97.7
[2023-06-09] MEDS: LIDOCAINE HCL 1% 10 MG/ML 10ML VIAL ONE (10:51)
[2023-06-09] MEDS ORDERED: GABA-529 PO (11:17)
[2023-06-09] MEDS ORDERED: LANTUSUD SUBCUT ×2 (11:17)
[2023-06-09] MEDS ORDERED: INSLIS SUBCUT (11:17)
== END 2023-06-09 15:33 | disposition home health service (06) | DRG 720 ==
LOC: ER 04:55 → UNDOADMIN 05-22 02:32 → MICUSO 05-22 02:32 → 7EST 05-25 02:32 → 5EST 05-25 20:40 → 6EST 05-29 23:30
PROVIDERS: ADMIT Family Medicine Adult Medicine; ATTEND Family Medicine Adult Medicine
PROC: 02HV33Z Insertion of Infusion Device into Superior Vena Cava, Percutaneous Approach (ICD-10-PCS; principal; 2023-05-28)
PROC: B548ZZA Ultrasonography of Superior Vena Cava, Guidance (ICD-10-PCS; 2023-05-28)
DX: A41.51 Sepsis due to Escherichia coli [E. coli] (principal); E87.20 Acidosis, unspecified; F25.0 Schizoaffective disorder, bipolar type; E87.1 Hypo-osmolality and hyponatremia; N39.0 Urinary tract infection, site not specified; E11.65 Type 2 diabetes mellitus with hyperglycemia; B96.20 Unspecified Escherichia coli [E. coli] as the cause of diseases classified elsewhere; D64.9 Anemia, unspecified; E78.00 Pure hypercholesterolemia, unspecified; E87.5 Hyperkalemia; I10 Essential (primary) hypertension; R65.20 Severe sepsis without septic shock; R74.8 Abnormal levels of other serum enzymes; M79.671 Pain in right foot; E86.9 Volume depletion, unspecified; I07.1 Rheumatic tricuspid insufficiency; I27.21 Secondary pulmonary arterial hypertension; Z79.4 Long term (current) use of insulin; Z82.49 Family history of ischemic heart disease and other diseases of the circulatory system; Z83.3 Family history of diabetes mellitus
CPT/HCPCS: 36415; 36573; 71045; 80048; 80053; 80202; 80305; 80307; 80320; 80329; 81001; 81003; 81025; 82306; 82330; 82533; 82962; 83036; 83605; 83735; 83935; 84100; 84145; 84300; 84439; 84443; 84481; 84703; 85025; 87077; 87186; 87426; 93005; 93306; 96372; 96374; 99285; C1725; J0696; J1200; J1815; J2060; J2185; J3370; J3475; J3486; J3490; J7030; J7060; G0480